=== PATIENT | male | born 1970 | race Caucasian/White ===

== ENCOUNTER 2020-05-21 07:16 | Outpatient (CLI) | payer OTHER, SELFPAY ==
[2020-05-21 07:34] LABS: Hematocrit 44.1 % (42.0-52.0); Hemoglobin 15.2 g/dL (14.0-18.0); Mean Corpuscular HGB Conc 34.5 g/dl (32-36); Mean Corpuscular Hemoglobin 32.1 pg (26-34); Mean Platelet Volume 10.2 fl (7.4-10.4); Platelet Count Result 214 k/mm3 (150-375); Red Blood Count 4.74 M/mm3 (4.6-6.20); Red Cell Distribution Width 12.3 % (11.5-14.5); White Blood Count 5.2 K/mm3 (4.5-10.0)
[2020-05-21 07:49] LABS: Alanine Aminotransferase 24 U/L (4-50); Albumin Level 4.4 g/dL (3.5-5.1); Alkaline Phosphatase 60 U/L (38-126); Anion Gap 7 mmol/L (8-16); Aspartate Amino Transferase 27 U/L (17-59); Blood Urea Nitrogen 22 mg/dL (9-20); Calcium 8.9 mg/dL (8.4-10.2); Carbon Dioxide 28 mmol/L (22-30); Chloride 103 mmol/L (98-107); Cholesterol 175 mg/dL (0-200); Estimated Glomerular Filt Rate > 60; Glucose 97 mg/dL (75-110); HDL Direct 42 mg/dL; Potassium 4.5 mmol/L (3.4-5.0); Sodium 138 mmol/L (137-145); Triglycerides 149 mg/dL (<150)
[2020-05-21 08:00] LABS: LDL Cholesterol Direct 106 mg/dL
[2020-05-21 08:19] LABS: Prostate Specific Antigen 0.9 ng/mL (< OR = 4.0)
[2020-05-25 12:31] LABS: Testosterone Total 410 ng/dL (250-1100)
== END 2020-05-21 07:17 | disposition home or self-care (01) ==
PROVIDERS: PCP Internal Medicine; Visit Provider Internal Medicine
DX: E78.2 Mixed hyperlipidemia (principal); E29.1 Testicular hypofunction; Z12.5 Encounter for screening for malignant neoplasm of prostate
CPT/HCPCS: 36415; 80053; 80061; 84153; 84403; 85027; G0103

== ENCOUNTER 2020-07-04 19:17 | Emergency (ER) | payer OTHER, SELFPAY ==
--- NOTE | ~2020-07-04 | XR_ITS ---
EXAMINATION: XR shoulder RT min 2V, XR elbow RT min 3V, XR humerus RT DATE: 07/04/2020 19:45 INDICATION: Right upper arm pain from the shoulder through the elbow post fall TECHNIQUE: 1. AP internally and externally rotated, AP oblique externally rotated and axillary views of the affe cted shoulder were obtained. 2. AP and lateral views of the right humerus were obtained. 3. AP, lateral and oblique views of the right elbow were obtained. COMPARISON: None FINDINGS: Right shoulder: Normal alignment. No fracture. Glenohumeral joint is normal. Acromioclavicular joint is normal. Coup le small bone islands at the humeral head. Soft tissues are unremarkable. Visualized portions of the right lung are clear. Right humerus and elbow: There is an intra-articular fracture at the head of the proximal right radius with fracture fragment involving approximately 30-40% of the articular surface area. The fragment is minimally depressed wit h up to 1.5 mm maximal fracture gap and 1 mm maximal step off at the articular surface. No other frac tures identified. Elbow joint is otherwise normal alignment with normal joint space and small joint e ffusion resulting in displacement of the anterior but not the posterior fat pad. Soft tissues are oth erwise unremarkable. IMPRESSION: Minimally depressed intra-articular fracture at the right radial head. Reviewed, dictated and finalized at location A. IMPRESSION: Minimally depressed intra-articular fracture at the right radial head. IMPRESSION: Minimally depressed intra-articular fracture at the right radial head.
[2020-07-04 19:31] VITALS: BP 116/81; PULSE 65; RESP 20; TEMP 38; O2SAT 100
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
== END 2020-07-04 20:13 | disposition home or self-care (01) ==
PROVIDERS: Emergency Provider Nurse Practitioner; PCP Internal Medicine
DX: S52.121A Displaced fracture of head of right radius, initial encounter for closed fracture (principal); V18.4XXA Pedal cycle driver injured in noncollision transport accident in traffic accident, initial encounter; E78.00 Pure hypercholesterolemia, unspecified
CPT/HCPCS: 29105; 73030; 73060; 73080; 99214; A4565; G0463

== ENCOUNTER 2024-11-08 00:42 | Day surgery (SDC) | payer OTHER, SELFPAY ==
[2024-10-24 14:53] VITALS: BMI 25.9
--- OUTSIDE RECORDS SUMMARY | 2024-11-08 00:46 | XMS_ITS | Referral Summary ---
Author Organization [facility] Address [address] [place] [address] Care Team Providers Care Residential Sales Consultant Name Role Phone Unavailable Primary Care Provider Unavailabl e Source Comments [facility],non-[facility]iliates and Associated Physician Practices is amultiple site organization consisting of ambulatory clinics and hospital sitesin [place], [place], [place] and [place]. This disclosure is being madepursuant to the Care Everywhere program and may not contain all information available regarding this patient. Last updated 18.[facility] Social History Tobacco Use Types Packs/Day Years Used Date Smoking Tobacco: Never Assessed Sex and Gender Information Value Date Recorded Sex Assigned at Not on file Gender Identity Not on file Sexual Orientation Not on file Plan of Treatment Not on file
--- OUTSIDE RECORDS SUMMARY | 2024-11-08 00:46 | XMS_ITS | Patient Health Summary ---
Author Organization [facility] Address [address] [place] [address] Care Team Providers Care Monorail Car Operator Name Role Phone Unavailable Primary Care Provider Unavailabl e Note from [facility],non-owned Affiliates and Associated Physician Practices is amultiple site organization consisting of ambulatory clinics and hospital sitesin [place], [place] and [place]. This disclosure is being madepursuant to the Care Everywhere program and may not contain all information available regarding this patient. Last updated 18.[facility] Social History Tobacco Use Types Packs/Day Years Used Date Smoking Tobacco: Never Assessed Sex and Gender Information Value Date Recorded Sex Assigned at Not on file Gender Identity Not on file Sexual Orientation Not on file Procedures * DERMATOPATHOLOGY(Performed 11/14/2023) Performed for Neoplasm of uncertain behavior of skin Results * DERMATOPATHOLOGY (11/14/2023 12:00 AM [facility]) Case Report Dermatopathology Report Case: [id number] Authorizing Provider: Prasanth Crespo MD Collected: 11/14/2023 12:00 AM Ordering Location: [facility] DermPath Lab Received: 11/16/2023 06:50 AM Pathologist: Haritha Moore MD Specimen: Skin, right anterior shoulder 10:31 AM [facility] DERMATOPATHOLOGY LABORATORY Final Diagnosis Specimen A. 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 Squamous Cell Carcinoma 10:31 AM [facility] DERMATOPATHOLOGY LABORATORY Gross Description Specimen A: Received is one formalin filled container labeled with the patient's name and designated right anterior shoulder. The specimen consists of a shave biopsy measuring 9x7x6 mm. Jar 0. 10:31 AM [facility] DERMATOPATHOLOGY LABORATORY Microscopic Description Specimen A. SKIN, right anterior shoulder: There is epidermal hyperplasia flanking a protuberant, ulcerated, dermal-based spindle cell neoplasm. The lesional cells display a fibrohistiocytic morphology, arranged in haphazard array among coarse collagen bundles. The lesion extends broadly to the specimen base. The hematoxylin and eosin stain is reviewed; immunohistochemical stains are performed to further characterize this process. The lesional cells are positive for Factor XIIIa and CD163 and negative for CD34. ALK , ERG and HHV8 are additionally negative. This case has been reviewed by Dr. Florencia Davis who concurs with the diagnosis. 10:31 AM [facility] DERMATOPATHOLOGY LABORATORY Disclaimer An external and internal positive and negative controls are appropriate for the histochemical, immunohistochemical and immunofluorescence stain(s) in this case (if any), except where stated explicitly. The performance characteristics of the stain(s) cited in this report were developed and its performance characteristic determined by the Dermatopathology Laboratory at [facility], directed by Dr. Adrian Frias. These tests need not be, and therefore are not, approved by the [place] Food and Drug Administration. The tests are used for clinical purposes. Billing Codes Specimen Charges Stain Charges 55276 1 54157 73609 47219 67022 03462 40221 1 1 1 1 1 1 10:31 AM [facility] DERMATOPATHOLOGY LABORATORY Embedded Images 10:31 AM [facility] DERMATOPATHOLOGY LABORATORY Pathology/Cytolog y TISSUE SPECIMEN FROM SKIN / Unknown 11/14/2023 11/16/2023 6:50 AM [facility] Prasanth Crespo MD LAB - PATHOLOGY/CYTO LOGY ORDER[facility]LES DERMATOPATHOLOGY LABORATORY [facility] - Department of Dermatology [address], [address] [phone]
--- OUTSIDE RECORDS SUMMARY | 2024-11-08 00:46 | XMS_ITS | Encounter Summary ---
Author Organization [facility] Address [address] [place] [address] Care Team Providers Care Pickle Solution Maker Name Role Phone Unavailable Primary Care Provider Unavailabl e Encounter Details Date Type Department Care Team (Late st Contact Info) Description 11/14/2023 Lab Requisition [facility] - DermPath Lab [address] [place] [phone] Prasanth Crespo MD [facility] DERMATOLOGY [address] [place] [phone] Neoplasm of uncertain behavior of skin Social History Tobacco Use Types Packs/Day Years Used Date Smoking Tobacco: Never Assessed Sex and Gender Information Value Date Recorded Sex Assigned at Not on file Gender Identity Not on file Sexual Orientation Not on file documented as of this encounter Plan of Treatment Not on file documented as of this encounter Procedures Procedure Name Priority Date/Time Associated Diagnosis Comments DERMATOPATHOLOGY Routine 11/14/2023 12:0 0 AM [employer] Neoplasm of uncertain behavior of skin documented in this encounter Results * DERMATOPATHOLOGY (11/14/2023 12:00 AM [employer]) Case Report Dermatopathology Report Case: [id number] Authorizing Provider: Prasanth Crespo MD Collected: 11/14/2023 12:00 AM Ordering Location: [facility] DermPath Lab Received: 11/16/2023 06:50 AM Pathologist: Haritha Moore MD Specimen: Skin, right anterior shoulder 10:31 AM [facility] DERMATOPATHOLOGY LABORATORY Final Diagnosis Specimen A. 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 Squamous Cell Carcinoma 10:31 AM [facility] DERMATOPATHOLOGY LABORATORY Gross Description Specimen A: Received is one formalin filled container labeled with the patient's name and designated right anterior shoulder. The specimen consists of a shave biopsy measuring 9x7x6 mm. Jar 0. 10:31 AM [facility] DERMATOPATHOLOGY LABORATORY Microscopic Description Specimen A. SKIN, [...] who concurs with the diagnosis. 10:31 AM [facility] DERMATOPATHOLOGY LABORATORY Disclaimer An external and internal positive and negative controls are appropriate for the histochemical, immunohistochemical and immunofluorescence stain(s) in this case (if any), except where stated explicitly. The performance characteristics of the stain(s) cited in this report were developed and its performance characteristic determined by the Dermatopathology Laboratory at [facility], directed by Dr. Adrian Frias. These tests need not be, and therefore are not, approved by the [place] Food and Drug Administration. The tests are used for clinical purposes. Billing Codes Specimen Charges Stain Charges 23716 1 20256 97493 85325 31921 46794 20898 1 1 1 1 1 1 10:31 AM [facility] DERMATOPATHOLOGY LABORATORY Embedded Images 10:31 AM [facility] DERMATOPATHOLOGY LABORATORY Pathology/Cytolog y TISSUE SPECIMEN FROM SKIN / Unknown 11/14/2023 11/16/2023 6:50 AM [facility] Prasanth Crespo MD LAB - PATHOLOGY/CYTO LOGY ORDERABLES DERMATOPATHOLOGY LABORATORY [facility] - Department of Dermatology [address] [place] [address], [facility] [phone] documented in this encounter Visit Diagnoses Diagnosis Neoplasm of uncertain behavior of skin documented in this encounter
--- OUTSIDE RECORDS SUMMARY | 2024-11-08 00:46 | XMS_ITS | Clinical Summary ---
Author Organization [facility] Address [address] [place] [address] Care Team Providers Care Train Clerk Name Role Phone Unavailable Primary Care Provider Unavailabl e Source Comments [facility],non-owned Affiliates and Associated Physician Practices is amultiple site organization consisting of ambulatory clinics and hospital sitesin [place], [place] and [place]. This disclosure is being madepursuant to the Care Everywhere program and may not contain all information available regarding this patient. Last updated 18.[facility] Social History Tobacco Use Types Packs/Day Years Used Date Smoking Tobacco: Never Assessed Sex and Gender Information Value Date Recorded Sex Assigned at Not on file Gender Identity Not on file Sexual Orientation Not on file Plan of Treatment Health Maintenance Due Date Last Done Comments COLOGUARD (AGES 45-75) - COL ON CA SCREENING 1971 COLON MONITORING 1971 COLONOSCOPY - COLON CA SCREENING 1971 CT COLONOGRAPHY - COLON CA SCREENING 1971 Colorectal Cancer Screening 1971 FIT - COLON CA SCREENING 1971 FLEX SIG - COLON CA SCREENING 1971 LIPID TESTING 1971 HIV SCREENING 1986 HEPATITIS C SCREENING 09/30/1989 DTAP/TDAP/TD VACCINES (1 - Tdap) 1990 HEPATITIS B VACCINE (1 of 3 - 19+ 3-dose series) 1990 PNEUMOCOCCAL VACCINE 50+ (1 of 1 - PCV) 2021 ZOSTER VACCINE (1 of 2) 2021 COVID-19 VACCINE ( - 2023-2 5 season) 2024 INFLUENZA VACCINE (#1) 2024 DEPRESSION SCREENING 10/02/2024 HIB VACCINE Aged Out No longer eligi ble based on patient's age to complete this topic HPV VACCINE Aged Out No longer eligi ble based on patient's age to complete this topic MENINGOCOCCAL (Group B) VACCINE Aged Out No longer eligible based on patient's age to complete this topic MENINGOCOCCAL VACCINE Aged Out No nola sendy eligible based on patient's age to complete this topic PNEUMOCOCCAL VACCINE Aged Out No long er eligible based on patient's age to complete this topic
[2024-11-08 06:23] VITALS: BP 120/82; PULSE 86; RESP 16; TEMP 36.3; O2SAT 97
[2024-11-08] MEDS: LACTATED RINGERS 1,000 ML 150 ML IV CONT (06:31)
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
[2024-11-08 07:46] VITALS: BP 94/69; PULSE 68; RESP 17; O2SAT 97
[2024-11-08 07:56] VITALS: BP 112/79; PULSE 62; RESP 20; O2SAT 99
[2024-11-08 08:06] VITALS: BP 115/77; PULSE 60; RESP 20; O2SAT 99
== END 2024-11-08 08:14 | disposition home or self-care (01) ==
PROVIDERS: PCP Nurse Practitioner; Visit Provider Internal Medicine Gastroenterology
PROC: 0DJD8ZZ Inspection of Lower Intestinal Tract, Via Natural or Artificial Opening Endoscopic (ICD-10-PCS; CPT 45378; principal; 2024-11-08 07:30)
DX: Z12.11 Encounter for screening for malignant neoplasm of colon (principal); K64.8 Other hemorrhoids
CPT/HCPCS: 45378; J2003; J2704; J7120